=== PATIENT | male | born 1950 | race Caucasian/White ===

== ENCOUNTER → 2024-01-10 06:43 | Day surgery (SDC) | payer MEDICARE, SELFPAY | LOC: GI 06:43 | PROVIDERS: ATTENDING PHYSICIAN Specialist | DX: Z12.11 Encounter for screening for malignant neoplasm of colon (principal); K51.40 Inflammatory polyps of colon without complications; K57.30 Diverticulosis of large intestine without perforation or abscess without bleeding | CPT/HCPCS: 45385; 88305 ==

== ENCOUNTER → 2025-01-14 07:41 | Outpatient (REF) | payer MEDICARE, SELFPAY | LOC: HWRAD 07:41 | PROVIDERS: ATTENDING PHYSICIAN Nurse Practitioner Family | DX: E04.1 Nontoxic single thyroid nodule (principal) | CPT/HCPCS: 76536 ==